=== PATIENT | female | born 1985 | race African-American/Black ===

== ENCOUNTER → 2016-08-28 | Outpatient (CLI) | payer MEDICAID ==
[2016-08-28 17:19] LABS: ABSOLUTE EOSINOPHILS # (AUTO) 0.3 10^3/uL (0.0-0.6); ABSOLUTE LYMPHOCYTES (AUTO) 2.4 10^3/uL (0.5-4.7); ABSOLUTE MONOCYTES (AUTO) 0.6 10^3/uL (0.1-1.4); ABSOLUTE NEUT (AUTO) 6.9 10^3/uL (1.7-8.2); BASOPHILS % (AUTO) 0.4 % (0-2); EOSINOPHILS % (AUTO) 2.9 % (0-6); HEMATOCRIT 36.4 % (36.0-47.0); HEMOGLOBIN 12.3 g/dL (12.0-15.5); HGB HCT DIFFERENCE 0.5; LYMPHOCYTES % (AUTO) 23.6 % (13-45); MEAN CORPUSCULAR HEMOGLOBIN 29.7 pg (27.0-33.4); MEAN CORPUSCULAR HGB CONC 33.8 g/dL (32.0-36.0); MEAN CORPUSCULAR VOLUME 88 fl (80-97); RED BLOOD COUNT 4.14 10^6/uL (3.72-5.28); RED CELL DISTRIBUTION WIDTH 14.3 % (11.5-14.0); SEGMENTED NEUTROPHILS % (AUTO) 67.1 % (42-78); WHITE BLOOD COUNT 10.3 10^3/uL (4.0-10.5)
[2016-08-28 17:39] LABS: ALANINE AMINOTRANSFERASE 41 U/L (9-52); ALBUMIN 3.8 g/dL (3.5-5.0); ALKALINE PHOSPHATASE 52 U/L (38-126); ANION GAP 10 (5-19); ASPARTATE AMINO TRANSFERASE 23 U/L (14-36); BILIRUBIN,TOTAL 0.2 mg/dL (0.2-1.3); BLOOD UREA NITROGEN 18 mg/dL (7-20); CALCIUM 9.2 mg/dL (8.4-10.2); CARBON DIOXIDE 28 mmol/L (22-30); CHLORIDE 103 mmol/L (98-107); CREATININE RESULT 0.69 mg/dL (0.52-1.25); GLUCOSE 90 mg/dL (75-110); LIPASE 47.5 U/L (23-300); POTASSIUM 4.1 mmol/L (3.6-5.0); SODIUM 141.3 mmol/L (137-145); TOTAL PROTEIN 7.5 g/dL (6.3-8.2)
== END ==
LOC: OD 16:56
PROVIDERS: ATTEND Nurse Practitioner Acute Care
DX: R10.11 Right upper quadrant pain (principal)
CPT/HCPCS: 36415; 80053; 83690; 85025

== ENCOUNTER 2017-01-05 23:35 | Emergency (ER) | payer MEDICAID ==
--- NOTE | 2017-01-06 01:29 | RADIOLOGY REPORT (SQ) ---
EXAM DESCRIPTION: ANKLE LEFT COMPLETE COMPLETED DATE/TIME: 01/06/2017 1:07 am REASON FOR STUDY: left ankle injury s/p fall COMPARISON: None. NUMBER OF VIEWS: Three views. TECHNIQUE: AP, lateral, and oblique radiographic images acquired of the left ankle. LIMITATIONS: None. FINDINGS: MINERALIZATION: Normal. BONES: No acute fracture or dislocation. No worrisome bone lesions. Small plantar faucial enthesoph yte. Diminished calcaneal inclination angle. JOINTS: No effusions. SOFT TISSUES: Moderate lateral malleolar soft tissue swelling. OTHER: No other significant finding. IMPRESSION: Moderate lateral malleolar soft tissue swelling of the left ankle. TECHNICAL DOCUMENTATION: JOB ID: [id number] [employer]- All Rights Reserved
[2017-01-06] MEDS ORDERED: IBUPROFEN 600 MG TABLET PO ONE (03:53)
--- NOTE | 2017-01-06 03:58 | ER Document Report ---
ED General - General Chief Complaint: Fall Injury Stated Complaint: ANKLE PAIN Time Seen by Provider: 01/06/17 03:32 Notes: Patient is a 31 year old female without past medical history presents after missing a step and rolling her left ankle. States that since that time she has had a severe, constant, throbbing pain to the left ankle. No history of similar injury in the past. States she has been able to bear weight but it worsens the pain. Has not tried anything for improvement of the pain. She has not seen a primary care doctor regarding today's concerns. TRAVEL OUTSIDE OF THE [place] IN LAST 30 DAYS: No - Related Data Allergies/Adverse Reactions: No Known Allergies Allergy (Verified 01/06/17 00:55) Past Medical History - General Information source: Patient - Social History Smoking Status: Never Smoker Frequency of alcohol use: None Drug Abuse: None Lives with: Spouse/Significant other Family History: Reviewed & Not Pertinent Renal/ Medical History: Denies: Hx Peritoneal Dialysis Past Surgical History: Reports: Hx Section - x4 - Immunizations Hx Diphtheria, Pertussis, Tetanus Vaccination: Yes Review of Systems - Review of Systems Notes: Constitutional: Negative for fever. Eyes: Negative for visual changes. ENT: Negative for facial injury Cardiovascular: Negative for chest injury. Respiratory: Negative for shortness of breath. Gastrointestinal: Negative for abdominal injury. Genitourinary: Negative for genital injury Musculoskeletal: Positive for left ankle pain Skin: Negative for laceration/abrasions. Neurological: Negative for head injury. Physical Exam - Vital signs Vitals: Temp Pulse Resp BP Pulse Ox 98.7 F 68 20 114/69 100 01/06/17 00:54 01/06/17 00:54 01/06/17 00:54 01/06/17 00:54 01/06/17 00:54 Interpretation: Normal Notes: PHYSICAL EXAMINATION: GENERAL: Well-appearing, well-nourished and in no acute distress. HEAD: Atraumatic, normocephalic. EYES: sclera anicteric, conjunctiva are normal. ENT: Moist mucous membranes. NECK: Normal range of motion LUNGS: Normal work of breathing HEART: 2+ radial pulses bilaterally EXTREMITIES: Significant swelling of the lateral malleolus on the left ankle. Full dorsi and plantar flexion although significant pain with range of motion. No pain over the navicular or the base of the fifth toe. NEUROLOGICAL: No focal neurological deficits. Moves all extremities spontaneously and on command. PSYCH: Normal mood, normal affect. SKIN: Warm, Dry, normal turgor, no rashes or lesions noted. Course - Re-evaluation Re-evalutation: 01/06/17 03:53 No evidence of a septic joint, gout flare, dislocation, or fracture on exam and imaging. History and exam are most consistent with an acute ligamentous injury. Vitals wnl. At this time, I do not see an indication for labs or further imaging. Will discharge with conservative measures, return precautions, and follow-up recommendations. - Vital Signs Vital signs: Temp Pulse Resp BP Pulse Ox 98.7 F 68 20 114/69 100 01/06/17 00:54 01/06/17 00:54 01/06/17 00:54 01/06/17 00:54 01/06/17 00:54 - Diagnostic Test Radiology reviewed: Image reviewed, Reports reviewed Radiology results interpreted by me: 01/06/17 03:55 Left ankle x-ray: No acute fracture dislocation Discharge - Discharge Clinical Impression: Left ankle sprain Qualifiers: Encounter type: initial encounter Involved ligament of ankle: unspecified ligament Qualified Code(s): S93.402A - Sprain of unspecified ligament of left ankle, initial encounter Condition: Good Disposition: HOME, SELF-CARE Additional Instructions: Your x-ray does not show any acute fracture today. You likely have a ligamentous strain. You should continue to take anti-inflammatories such as ibuprofen 600 mg every 6 hours. Continue to apply ice to the area is much your able. Please follow-up with your primary care physician if you do not have improving your symptoms in the next 1-2 weeks. Please return immediately if you develop weakness, numbness, spreading redness from the area, or any other symptoms that are concerning to you.
[2017-01-06 04:57] VITALS: BP 124/74
== END 2017-01-06 04:52 | disposition home or self-care (01) ==
LOC: ER 23:35
DX: S93.402A Sprain of unspecified ligament of left ankle, initial encounter (principal); X50.0XXA Overexertion from strenuous movement or load, initial encounter
CPT/HCPCS: 99283; 73610; J3490

== ENCOUNTER 2018-09-16 16:54 | Outpatient (CLI) | payer MEDICAID ==
--- NOTE | 2018-09-16 18:09 | Non Stress Test Report ---
Non Stress Test Datetime Report Generated by CPN: 09/16/2018 18:09 INDICATION Indication for Study: Ordered by Provider VITAL SIGNS Temperature - NST: 98.0 RESP - NST: 16 NBPSYS NST: 118 NBPDIA NST: 60 MONITORING Monitor Explained: Monitor Explained; Test Explained; Patient Verbalized Understanding Time on Monitor: 09/16/2018 17:08 Time off Monitor: 09/16/2018 17:46 NST Duration: 38 NST INTERVENTIONS NST Interventions: PO Hydration Physician Notified NST: K. Bella CNM BABY A: [id number] BABY A Movement : Present Contraction Frequency : none FHR Baseline : 135 Accelerations : 15X15 Decelerations : None Variability : Moderate 6-25bpm NST Review: Does Not Meet Criteria for Reactive NST NST Review and Verified By : Jojo Zeb RNC NST Results: Reactive NST REPORT Report Trigger: Send Report
== END 2018-09-16 18:07 | disposition home or self-care (01) ==
LOC: LC 16:54
PROVIDERS: ATTEND Obstetrics & Gynecology Gynecology
PROC: 4A1HXCZ Monitoring of Products of Conception, Cardiac Rate, External Approach (ICD-10-PCS; principal; 2018-09-16)
DX: Z34.93 Encounter for supervision of normal pregnancy, unspecified, third trimester (principal)
CPT/HCPCS: 59025

== ENCOUNTER 2018-10-06 05:31 | Inpatient (IN) | payer MEDICAID ==
[2018-10-04 12:53] LABS: ABSOLUTE EOSINOPHILS # (AUTO) 0.2 10^3/uL (0.0-0.6); ABSOLUTE LYMPHOCYTES (AUTO) 1.5 10^3/uL (0.5-4.7); ABSOLUTE MONOCYTES (AUTO) 0.6 10^3/uL (0.1-1.4); ABSOLUTE NEUT (AUTO) 6.1 10^3/uL (1.7-8.2); BASOPHILS % (AUTO) 0.2 % (0-2); EOSINOPHILS % (AUTO) 2.3 % (0-6); HEMATOCRIT 35.2 % (36.0-47.0); HEMOGLOBIN 12.2 g/dL (12.0-15.5); LYMPHOCYTES % (AUTO) 17.8 % (13-45); MEAN CORPUSCULAR HEMOGLOBIN 30.3 pg (27.0-33.4); MEAN CORPUSCULAR HGB CONC 34.6 g/dL (32.0-36.0); MEAN CORPUSCULAR VOLUME 88 fl (80-97); MONOCYTES % (AUTO) 7.2 % (3-13); PLATELET COUNT 395 10^3/uL (150-450); RED BLOOD COUNT 4.01 10^6/uL (3.72-5.28); RED CELL DISTRIBUTION WIDTH 14.5 % (11.5-14.0); SEGMENTED NEUTROPHILS % (AUTO) 72.5 % (42-78); TOTAL CELLS COUNTED % (AUTO) 100 %; WHITE BLOOD COUNT 8.4 10^3/uL (4.0-10.5)
[2018-10-04 13:04] LABS: APPEARANCE,URINE CLEAR; BILIRUBIN,URINE NEGATIVE (NEGATIVE); COLOR,URINE STRAW; GLUCOSE, URINE 50 mg/dL (NEGATIVE); KETONES,URINE TRACE mg/dL (NEGATIVE); LEUKOCYTE ESTERASE,URINE NEGATIVE (NEGATIVE); NITRITE,URINE NEGATIVE (NEGATIVE); PROTEIN,URINE NEGATIVE (NEGATIVE); URINE SPECIFIC GRAVITY 1.009; UROBILINOGEN,URINE NEGATIVE mg/dL (<2.0)
[2018-10-04 13:13] LABS: URINE AMPHETAMINES SCREEN NEGATIVE; URINE BARBITURATES SCREEN NEGATIVE; URINE BENZODIAZEPINES SCREEN NEGATIVE; URINE COCAINE SCREEN NEGATIVE; URINE MARIJUANA (THC) SCREEN NEGATIVE; URINE METHADONE SCREEN NEGATIVE; URINE PHENCYCLIDINE SCREEN NEGATIVE
[2018-10-06] MEDS ORDERED: RINGERS SOLUTION,LACTATED 1,000 ML IV PRN ×2 (06:13→10:47)
[2018-10-06] MEDS ORDERED: CEFAZOLIN 2 GM/D5W RTU 2 GM/50 ML RTUPB IV PRN (06:14)
[2018-10-06] MEDS ORDERED: RINGERS SOLUTION,LACTATED 1,000 ML IV ONE (06:15)
[2018-10-06] MEDS ORDERED: ONDANSETRON HCL INJ/PF 4 MG/2 ML SDV ONE (08:37)
[2018-10-06] MEDS ORDERED: KETOROLAC TROMETHAMINE 60 MG/2 ML SDV ONE (08:37)
[2018-10-06] MEDS ORDERED: PROMETHAZINE HCL INJ 25 MG/1 ML VIAL ONE (08:37)
[2018-10-06] MEDS ORDERED: MIDAZOLAM 2 MG/2 ML INJ ONE (08:37)
[2018-10-06] MEDS ORDERED: BUPIVACAINE HCL/DEX-WATER/PF 15 MG/2 ML AMPULE ONE (08:37)
[2018-10-06] MEDS ORDERED: EPHEDRINE SULFATE INJ 50 MG/1 ML AMPULE ONE (08:37)
[2018-10-06] MEDS ORDERED: PHENYLEPHRINE HCL INJ/PF 10 MG/1 ML SDV ONE (08:37)
[2018-10-06] MEDS ORDERED: FENTANYL CITRATE INJ/PF 100 MCG/2 ML AMPUL ONE ×2 (08:38→11:30)
[2018-10-06] MEDS ORDERED: OXYTOCIN 10 UNIT/ML VIAL ONE (08:38)
[2018-10-06] MEDS ORDERED: VASOPRESSIN INJ 20 UNIT/1 ML VIAL ONE (08:44)
[2018-10-06] MEDS ORDERED: ALBUMIN HUMAN 5% INJ 25 GM/500 ML BOTTLE IV PRN (08:49)
[2018-10-06] MEDS ORDERED: CITRIC ACID/SODIUM CITRATE ORAL SOLN 15 ML UDCUP ONE (09:14)
[2018-10-06] MEDS ORDERED: ALBUMIN HUMAN 500 ML IV PRN (09:21)
[2018-10-06] MEDS ORDERED: MORPHINE SULFATE 10 MG/ML INJ IV PRN ×2 (09:42→10:47)
[2018-10-06] MEDS ORDERED: PROMETHAZINE HCL INJ 25 MG/1 ML VIAL IV PRN ×3 (09:42→10:47)
[2018-10-06] MEDS ORDERED: MEPERIDINE HCL/PF INJ 25 MG/1 ML DISP.SYRIN IV PRN (09:42)
[2018-10-06] MEDS ORDERED: FENTANYL CITRATE INJ/PF 100 MCG/2 ML AMPUL IV PRN ×3 (09:42)
[2018-10-06] MEDS ORDERED: ACETAMINOPHEN 1,000 MG/100 ML RTUPB IV ONE (10:22)
[2018-10-06] MEDS ORDERED: MEASLES,MUMPS&RUBELLA VACC/PF 0.5 ML VIAL SUBCUT PRN (10:47)
[2018-10-06] MEDS ORDERED: OXYTOCIN/NORMAL SALINE 20 UNIT/1,000 ML RTUINJ IV PRN (10:47)
[2018-10-06] MEDS ORDERED: ACETAMINOPHEN 1,000 MG/100 ML RTUPB IV PRN (10:47)
[2018-10-06] MEDS ORDERED: ACETAMINOPHEN 325 MG TABLET PO PRN (10:47)
[2018-10-06] MEDS ORDERED: OXYCODONE-ACETAMINOPHEN 5-325 MG TABLET PO PRN (10:47)
[2018-10-06] MEDS ORDERED: DIPH/PERTUSS(ACELL)/TETANUS VAC/PF 0.5 ML SYR (>=10YO) IM PRN (10:47)
[2018-10-06] MEDS ORDERED: DIPHENHYDRAMINE HCL 50 MG/ML VIAL ONE (11:37)
--- NOTE | 2018-10-06 11:39 | OPERATIVE REPORT E ---
Operative Report NAME: STAS ABREU : 1985 AGE: 32Y DATE OF SURGERY: 10/06/2018 ROOM: 228 PREOPERATIVE DIAGNOSIS: IUP at 39 weeks, previous x4, undesired fertility. POSTOPERATIVE DIAGNOSIS: IUP at 39 weeks, previous x4, undesired fertility. OPERATION: Low-transverse hysterotomy section with Vinings tubal ligation. SURGEON: VIC GARCES M.D. RESULTS ENGINEER: Kirsten Wong [facility] ANESTHESIA: Chavez Robbins M.D. FINDINGS: Male , cephalic presentation, with Apgars of 9 and 9, weight 7 pounds 11 ounces. Dense adhesions of the fascial tissue to the rectus muscle. COMPLICATIONS: None. ESTIMATED BLOOD LOSS: 650 mL. SPECIMENS REMOVED: Bilateral fallopian tubes. PROCEDURE IN DETAIL: The patient was taken to the operating room, prepared and draped in normal sterile fashion in a supine position with a leftward tilt. A transverse skin incision was made with a scalpel and carried through to the underlying layer of fascia with the same scalpel. The fascia was excised in the midline and extended laterally with the scalpel and Mayos as needed. The rectus muscle was then dissected from the fascia sharply with Mayos both superiorly and inferiorly. The rectus muscle was divided sharply with Mayos and the peritoneal cavity was entered sharply. The bladder blade was inserted. The hysterotomy was nicked with a scalpel and extended laterally with surgeon finger fracture. The infant was then delivered atraumatically, the nose and mouth were suctioned with a suction bulb, the cord was clamped and cut, and handed off to awaiting junior buyer. Cord blood was collected. The placenta was removed manually. The uterus was exteriorized and cleared of clots and debris. The hysterotomy was closed with 0 Monocryl in a running, locked fashion. A second layer of the same suture was used to imbricate to ensure hemostasis. Attention was turned to the fallopian tubes where each fallopian tube was grasped with a [place] and the mesosalpinx was divided using Bovie cautery. A large 3.5 cm segment of the fallopian tube was then tied off with 2 pieces of 2-0 chromic and the intermediate section was then removed using Metzenbaums and made hemostatic with the Bovie. The uterus was then returned to the abdomen. The pedicles were reinspected and found to be hemostatic and intact. The rectus muscle was reapproximated with a mattress stitch of 2-0 chromic, and 2 other interrupted sutures were placed in order to hold bowel away. The fascia was then closed with 0 Vicryl, the subcutaneous layer was closed with plain catgut, and the skin was closed with 4-0 Vicryl. The patient tolerated the procedure well. Sponge, lap, and needle counts were correct x2, and the patient was taken to recovery in stable condition. DICTATING PHYSICIAN: VIC GARCES M.D. [id number] PHY#: [id number] ID: [id number] JOB#: [id number] ACCT: [id number] cc:VIC GARCES M.D. >
[2018-10-06] MEDS: DIPHENHYDRAMINE HCL 50 MG/ML VIAL IV PRN ×2 (11:40→12:05)
[2018-10-06] MEDS: KETOROLAC TROMETHAMINE INJ/PF 30 MG/1 ML SDV IV SCH ×2 (14:59→21:46)
[2018-10-06] MEDS: DOCUSATE SODIUM 100 MG CAPSULE PO SCH (18:00)
[2018-10-06] MEDS: SIMETHICONE 80 MG TAB.CHEW PO PRN (18:00)
[2018-10-06] MEDS: OXYCODONE-ACETAMINOPHEN 5-325 MG TABLET PO PRN (18:43)
[2018-10-07] MEDS: OXYCODONE-ACETAMINOPHEN 5-325 MG TABLET PO PRN ×3 (01:52→21:57)
[2018-10-07] MEDS: KETOROLAC TROMETHAMINE INJ/PF 30 MG/1 ML SDV IV SCH (05:05)
[2018-10-07 07:39] LABS: HEMATOCRIT 24.7 % (36.0-47.0); MEAN CORPUSCULAR HEMOGLOBIN 30.1 pg (27.0-33.4); MEAN CORPUSCULAR HGB CONC 34.1 g/dL (32.0-36.0); MEAN CORPUSCULAR VOLUME 88 fl (80-97); PLATELET COUNT 323 10^3/uL (150-450); RED CELL DISTRIBUTION WIDTH 14.7 % (11.5-14.0); WHITE BLOOD COUNT 12.9 10^3/uL (4.0-10.5)
[2018-10-07 07:44] LABS: HEMOGLOBIN 8.4 g/dL (12.0-15.5)
[2018-10-07] MEDS: DOCUSATE SODIUM 100 MG CAPSULE PO SCH ×2 (09:09→17:23)
[2018-10-07] MEDS: PRENATAL VITAMIN W DHA CAPSULE PO SCH (09:09)
[2018-10-07] MEDS: SIMETHICONE 80 MG TAB.CHEW PO PRN (09:11)
--- NOTE | 2018-10-07 09:22 | PDOC PROGRESS REPORT ---
Subjective-OB Progress Note for:: 10/07/18 Subjective: Pt resting, no complaints. Reports ambulating to restroom without difficulty, light bleeding, reg diet. Denies flatus. Physical Exam (OB) Vital Signs: Temp Pulse Resp BP Pulse Ox 98.7 F 118 H 22 H 131/75 H 95 10/07/18 08:22 10/07/18 08:22 10/07/18 08:22 10/07/18 08:22 10/07/18 08:22 Intake & Output 10/06/18 10/07/18 10/08/18 06:59 06:59 06:59 Intake Total 650 Output Total 1070 Balance -420 Weight 132.449 kg - PIH/Pre-Eclampsia Clonus: Negative Headache: Absent Epigastric Pain: No Visual Changes: No - Dressing Removed: No Incision: Well Approximated - Lochia Lochia Amount: Scant < 10 ml Lochia Color: Rubra/Red - Abdomen Description: Soft, Round Fundal Description: Firm, Midline Fundal Height: u/u - u/2 Objective-Diagnostic Laboratory: 10/07/18 06:35 10/07/18 06:35 WBC 12.9 H RBC 2.80 L Hgb 8.4 L D Hct 24.7 L MCV 88 MCH 30.1 MCHC 34.1 RDW 14.7 H Plt Count 323 Assessment and Plan(PN) - Assessment and Plan (1) Status post repeat low transverse section Is this a current diagnosis for this admission?: Yes (2) Morbid obesity Is this a current diagnosis for this admission?: Yes - Time Spent with Patient Time with patient: Less than 15 minutes Medications reviewed and adjusted accordingly: Yes - Disposition Anticipated Discharge: Home Within: within 24 hours
[2018-10-07] MEDS ORDERED: BENZONATATE 100 MG CAPSULE PO PRN (09:23)
[2018-10-07] MEDS: IBUPROFEN 800 MG TABLET PO SCH ×3 (12:04→23:09)
[2018-10-08] MEDS: OXYCODONE-ACETAMINOPHEN 5-325 MG TABLET PO PRN ×2 (02:14→08:12)
[2018-10-08] MEDS: IBUPROFEN 800 MG TABLET PO SCH (06:15)
[2018-10-08] MEDS: PRENATAL VITAMIN W DHA CAPSULE PO SCH (09:11)
[2018-10-08] MEDS: DOCUSATE SODIUM 100 MG CAPSULE PO SCH (09:11)
--- NOTE | 2018-10-08 09:16 | PDOC DISCHARGE SUMMARY ---
Final Diagnosis Discharge Date: 10/08/18 - POD #2, desires to go home today, doing well, no complaints. A+, Rubella Immune, . s/p Rpt w/ BTL. Hx of GDM this - Final Diagnosis (1) GDM, class A1 Is this a current diagnosis for this admission?: Yes (2) Normal course Is this a current diagnosis for this admission?: Yes (3) Morbid obesity Is this a current diagnosis for this admission?: Yes (4) Status post repeat low transverse section Is this a current diagnosis for this admission?: Yes (5) Anemia, Is this a current diagnosis for this admission?: Yes Discharge Data - Discharge Medication Prescriptions: Ferrous Sulfate [Feosol 325 mg Tablet] 325 mg PO DAILY #30 tablet Ibuprofen [Motrin 800 mg Tablet] 800 mg PO Q6 #60 tablet Oxycodone HCl/Acetaminophen [Percocet 5-325 mg Tablet] 1 tab PO Q4HP PRN #30 tablet PRN Reason: Home Medications: Pnv W-O Ca No5/Fe Fumarate/FA [-U Multiple Vitamin Capsule] 1 cap PO DAILY 10/20/12 Ferrous Sulfate [Feosol 325 mg Tablet] 325 mg PO DAILY #30 tablet 10/08/18 Ibuprofen [Motrin 800 mg Tablet] 800 mg PO Q6 #60 tablet 10/08/18 Oxycodone HCl/Acetaminophen [Percocet 5-325 mg Tablet] 1 tab PO Q4HP PRN #30 tablet 10/08/18 Reason(s) for Admission: Ceasarean Section-Repeat, Tubal Ligation Procedures: NST, Ultrasound Intrapartum Procedure(s): : Low Cervical, Transverse - Diagnosis Test Laboratory: Temp Pulse Resp BP Pulse Ox 97.9 F 114 H 22 H 125/66 95 10/08/18 07:55 10/08/18 07:55 10/08/18 07:55 10/08/18 07:55 10/08/18 07:55 10/04/18 10/04/18 10/07/18 11:35 11:39 06:35 RBC 4.01 2.80 L Hgb 12.2 8.4 L D Hct 35.2 L 24.7 L Urine Opiates Screen NEGATIVE - Discharge information/Instructions Discharge Activity: Activity As Tolerated, No Driving, No Lifting Over 10 Pounds, Pelvic Rest Discharge Diet: As Tolerated, Regular Disposition: HOME, SELF-CARE Follow up with: [facility] in: 1, Weeks
[2018-10-08] MEDS ORDERED: FERROUS SULFATE 325 MG TABLET PO SCH (10:00)
[2018-10-08 13:48] VITALS: BP 139/68
== END 2018-10-08 15:06 | disposition home or self-care (01) | DRG 785 ==
LOC: 2S 05:31
PROVIDERS: ADMIT Obstetrics & Gynecology Gynecology; ATTEND Obstetrics & Gynecology Gynecology
PROC: 0UB70ZZ Excision of Bilateral Fallopian Tubes, Open Approach (ICD-10-PCS; 2018-10-06)
PROC: 10D00Z1 Extraction of Products of Conception, Low, Open Approach (ICD-10-PCS; principal; 2018-10-06 08:30)
PROC: 3E0234Z Introduction of Serum, Toxoid and Vaccine into Muscle, Percutaneous Approach (ICD-10-PCS; 2018-10-08)
PROC: 3E02340 Introduction of Influenza Vaccine into Muscle, Percutaneous Approach (ICD-10-PCS; 2018-10-08)
DX: O34.211 Maternal care for low transverse scar from previous cesarean delivery (principal); O99.214 Obesity complicating childbirth; O24.429 Gestational diabetes mellitus in childbirth, unspecified control; O99.334 Smoking (tobacco) complicating childbirth; F17.200 Nicotine dependence, unspecified, uncomplicated; E66.01 Morbid (severe) obesity due to excess calories; Z3A.39 39 weeks gestation of pregnancy; O99.02 Anemia complicating childbirth; D64.9 Anemia, unspecified; Z37.0 Single live birth; Z23 Encounter for immunization
CPT/HCPCS: 1961; 36415; 59025; 80307; 81001; 82962; 85025; 85027; 86850; 86900; 86901; 88302; 90471; 90686; 90715; 94799; G0008; J0131; J0690; J1200; J1885; J2250; J2270; J2370; J2405; J2550; J2590; J3010; J3490; J7120

== ENCOUNTER 2018-10-11 00:06 | Observation (INO) | payer MEDICAID ==
--- NOTE | 2018-10-11 01:56 | ER Document Report ---
ED Medical Screen (RME) - General Chief Complaint: Incision Problem Stated Complaint: POST OPT BLEEDING Time Seen by Provider: 10/11/18 01:52 Notes: 32-year-old female, had a on Thursday, went home on Thursday, patient is complaining of swelling in both lower extremities, shortness of breath, and headache. She also has some bleeding from the right lateral side of her C- section wound which is mild. Denies having preeclampsia during surgery, denies history of blood clot, on pain medication from discharge but no other daily medications. TRAVEL OUTSIDE OF THE [place] IN LAST 30 DAYS: No - Related Data Allergies/Adverse Reactions: No Known Allergies Allergy (Verified 10/04/18 12:13) Past Medical History Endocrine Medical History: Denies: Hx Hyperthyroidism, Hx Hypothyroidism Renal/ Medical History: Denies: Hx Peritoneal Dialysis Past Surgical History: Reports: Hx Section - x4 - Immunizations Hx Diphtheria, Pertussis, Tetanus Vaccination: Yes History of Influenza Vaccine for 04/2017 - 09/2017 Season: No Physical Exam - Vital signs Vitals: Temp Pulse Resp BP Pulse Ox 98.7 F 110 H 28 H 144/96 H 98 10/11/18 00:28 10/11/18 00:28 10/11/18 00:10/11/18 00:10/11/18 00:28 - Cardiovascular Rhythm: Regular, Tachycardia Heart sounds: Normal auscultation, S1 appreciated, S2 appreciated - Extremities General lower extremity: Other - Bilateral lower extremity swelling, seems slightly worse on the right - Skin Skin irregularity: other - There is dried blood on the bandage over the right lateral aspect of the wound, no current bleeding noted Course - Re-evaluation Re-evalutation: Patient with mildly elevated blood pressure, bilateral lower extremity swelling, she is tachycardic, complaining of shortness of breath, postop. Upgraded to triage level 2, called for a room. - Vital Signs Vital signs: Temp Pulse Resp BP Pulse Ox 98.7 F 110 H 28 H 144/96 H 98 10/11/18 00:28 10/11/18 00:28 10/11/18 00:10/11/18 00:10/11/18 00:28
[2018-10-11 02:24] LABS: HEMATOCRIT 24.2 % (36.0-47.0); HEMOGLOBIN 8.3 g/dL (12.0-15.5); MEAN CORPUSCULAR HEMOGLOBIN 30.5 pg (27.0-33.4); MEAN CORPUSCULAR HGB CONC 34.1 g/dL (32.0-36.0); MEAN CORPUSCULAR VOLUME 90 fl (80-97); PLATELET COUNT 455 10^3/uL (150-450); RED BLOOD COUNT 2.71 10^6/uL (3.72-5.28); RED CELL DISTRIBUTION WIDTH 14.8 % (11.5-14.0); WHITE BLOOD COUNT 9.8 10^3/uL (4.0-10.5)
[2018-10-11 02:41] LABS: ALANINE AMINOTRANSFERASE 70 U/L (9-52); ALBUMIN 3.6 g/dL (3.5-5.0); ALKALINE PHOSPHATASE 76 U/L (38-126); ANION GAP 7 (5-19); ASPARTATE AMINO TRANSFERASE 162 U/L (14-36); BILIRUBIN,DIRECT 0.2 mg/dL (0.0-0.4); BILIRUBIN,TOTAL 0.7 mg/dL (0.2-1.3); BLOOD UREA NITROGEN 17 mg/dL (7-20); CALCIUM 9.5 mg/dL (8.4-10.2); CARBON DIOXIDE 29 mmol/L (22-30); CHLORIDE 104 mmol/L (98-107); GLUCOSE 97 mg/dL (75-110); POTASSIUM 4.1 mmol/L (3.6-5.0); SODIUM 139.5 mmol/L (137-145); TOTAL PROTEIN 6.8 g/dL (6.3-8.2); URIC ACID 5.6 mg/dL (2.5-6.2)
[2018-10-11 02:42] LABS: ABSOLUTE LYMPHOCYTES# (MANUAL) 1.4 10^3/uL (0.5-4.7); BAND NEUTROPHILS % (MANUAL) 3 % (3-5); BASOPHILS % (MANUAL) 0 % (0-2); EOSINOPHILS % (MANUAL) 5 % (0-6); LYMPHOCYTES % (MANUAL) 14 % (13-45); METAMYELOCYTES % (MANUAL) 1 % (0); MONOCYTES % (MANUAL) 10 % (3-13); NUCLEATED RED BLOOD CELLS 2 /100 WBC (0); SEGMENTED NEUTROPHILS % (MAN) 67 % (42-78); TOTAL CELLS COUNTED 100
[2018-10-11 02:43] LABS: PLATELET COMMENT INCREASED; TOXIC VACUOLATION PRESENT
[2018-10-11 02:45] LABS: ANISOCYTOSIS SLIGHT; POIKILOCYTOSIS SLIGHT; POLYCHROMASIA 1+
--- NOTE | 2018-10-11 03:05 | RADIOLOGY REPORT (SQ) ---
EXAM DESCRIPTION: XR CHEST 1 VIEW COMPLETED DATE/TME: 10/11/2018 01:53 CLINICAL HISTORY: 32 years, Female, shortness of breath COMPARISON: 06/28/2014 NUMBER OF VIEWS: One TECHNIQUE: AP view of the chest LIMITATIONS: None. FINDINGS: The lungs are clear. The heart is normal in size. There is no pneumothorax or pleural effusion. There is no acute fracture. IMPRESSION: No acute cardiopulmonary abnormality copyright 2010 [employer]- All Rights Reserved
[2018-10-11 03:08] LABS: APPEARANCE,URINE SLIGHTLY-CLOUDY; BILIRUBIN,URINE NEGATIVE (NEGATIVE); COLOR,URINE YELLOW; GLUCOSE, URINE NEGATIVE (NEGATIVE); KETONES,URINE NEGATIVE (NEGATIVE); LEUKOCYTE ESTERASE,URINE NEGATIVE (NEGATIVE); NITRITE,URINE NEGATIVE (NEGATIVE); PROTEIN,URINE 30 mg/dL (NEGATIVE); URINE SPECIFIC GRAVITY 1.015
[2018-10-11 03:32] LABS: NT PRO BNP 496 pg/mL (<125)
[2018-10-11 03:33] LABS: TROPONIN I < 0.012 ng/mL
[2018-10-11] MEDS ORDERED: FUROSEMIDE INJ/PF 20 MG/2 ML SDV IV ONE (03:52)
--- NOTE | 2018-10-11 03:59 | ER Document Report ---
ED General - General Chief Complaint: Incision Problem Stated Complaint: POST OPT BLEEDING Time Seen by Provider: 10/11/18 01:52 Primary Care Provider: ROGELIO HOWE MD [Primary Care Provider] - Follow up as needed Notes: Patient is a pleasant 32-year-old female who underwent a on October 06. Said she had no complications of . was performed she had previous C-sections with other children. They also did a tubal ligation. This was performed here. Patient said that everything went well. She said just prior to being discharged chart note some swelling in her legs and she was told just to keep an eye on her swelling. She said swelling is continue to progress since then. She still having shortness of breath. No associated chest pain. No fevers. No severe pain in her abdomen. She did notice that her surgical incision wound was starting to bleed and therefore she came to the ER. She said bleeding has since slowed down. She did have a mild headache but this is also improved. TRAVEL OUTSIDE OF THE [place] IN LAST 30 DAYS: No - Related Data Allergies/Adverse Reactions: No Known Allergies Allergy (Verified 10/04/18 12:13) Past Medical History - Social History Smoking Status: Never Smoker Frequency of alcohol use: None Drug Abuse: None Family History: Reviewed & Not Pertinent Patient has suicidal ideation: No Patient has homicidal ideation: No Endocrine Medical History: Denies: Hx Hyperthyroidism, Hx Hypothyroidism Renal/ Medical History: Denies: Hx Peritoneal Dialysis Past Surgical History: Reports: Hx Section - x4 - Immunizations Hx Diphtheria, Pertussis, Tetanus Vaccination: Yes Review of Systems - Review of Systems Notes: My Normal Review Basic REVIEW OF SYSTEMS: CONSTITUTIONAL : Denies fever, chills, or sweats. Denies recent illness. EENT: Denies eye, ear, throat, or mouth pain or symptoms. Denies nasal or sinus congestion. CARDIOVASCULAR: Denies chest pain. RESPIRATORY: Some dyspnea. GASTROINTESTINAL: Denies abdominal pain. Denies nausea, vomiting, or diarrhea. From surgical wound. GENITOURINARY: Denies difficulty urinating, painful urination, burning, frequency, or blood in urine. MUSCULOSKELETAL: Lower extremity edema SKIN: Denies rash or skin lesions. NEUROLOGICAL: Denies altered mental status or loss of consciousness. Denies headache. Denies weakness or paralysis or loss of use of either side. Denies problems with gait or speech. Denies sensory or motor loss. ALL OTHER SYSTEMS REVIEWED AND NEGATIVE. Physical Exam - Vital signs Vitals: Temp Pulse Resp BP Pulse Ox 98.7 F 110 H 28 H 144/96 H 98 10/11/18 00:28 10/11/18 00:28 10/11/18 00:28 10/11/18 00:28 10/11/18 00:28 - Notes Notes: General Appearance: Well nourished, alert, cooperative, no acute distress, no obvious discomfort. Mild tachypnea Vitals: reviewed, See vital signs table. Head: no swelling or tenderness to the head Eyes: PERRL, EOMI, Conjuctiva clear Mouth: No decreasd moisture Lungs: No wheezing, No rales, No rhonci, No accessory muscle use, good air exchange bilaterally. Heart: Tachycardic rate, Regular rythm, No murmur, no rub Abdomen: Normal BS, soft, No rigidity, No abdominal tenderness, No guarding, no rebound, no abdominal masses, no organomegaly. Surgical incision sites from C- section is clean and intact. No active bleeding at this time. There is some blood in the bandage from where his bleeding before. Extremities: good pulses in all extremities, no swelling or tenderness in the extremities, 3+ bilateral lower extremity edema Skin: warm, dry, appropriate color, no rash Neuro: speech clear, oriented x 3, normal affect, responds appropriately to questions. Cranial nerves II through XII are intact. Distal sensation intact. Patient moves all extremities without difficulty. Course - Re-evaluation Re-evalutation: 10/11/18 03:56 On reevaluation she does have some tachypnea, significant edema bilateral lower extremities. She herself says that she feels okay for the most part. Her wound looks well. The leaving a stop. I have changed the dressing on the wound and the wound is dry and intact without signs of infection. I did recheck her temperature temp is normal at 98.3 degrees. Her lung chu remain clear. I have ordered a small dose of Lasix at 20 mg IV. Patient's retention is resolved on its own without any intervention. Her laboratory findings are very nonspecific and that she does have some slight liver enzyme elevation as well as some protein in her urine however she does not have a thrombocytopenia and her blood pressure is improving on its own. LDH is elevated but her uric acid is normal. I considered cardiomyopathy however chest x-ray does not show any concerning findings and her BNP is only slightly elevated at 496. She is on any signs of infection at this time. I did call and discuss case with Dr. Townsend, rn managed care on-call, he agrees with plan to give her a small dose of Lasix. He said to watch her for an hour or 2 and see how she progresses then to call him back. 10/11/18 05:55 On reevaluation patient continues to have some tachypnea. She says she feels a bit better since Lasix however she obviously still having a little bit difficulty breathing and is tachycardic. I wanted to avoid CTA of the chest w ith possible being that does cause a slight increased risk of breast cancer and when her breast-feeding; however, I feel that the benefits outweigh the risks as like cannot rule out PE at this time and if she does have a PE this definitely is a concerning finding. Patient is understanding of this and is understanding the risks of CT scan and agrees to go forward with it. 10/11/18 07:08 10/11/18 07:15 CTA is negative for PE. I did speak with Dr. Townsend who did evaluate the patient. He said that he talked to patient and she did talk with her about whether not stay or go home. Went back and spoke with the patient and she says that she does want to stay. I did call back and speak with Dr. Townsend's nurse and she spoke with Dr. Townsend who said to place the patient on the second floor and there was all observed. Patient will be admitted for observation due to dyspnea, increasing edema, tachycardia. Dictation of this chart was performed using voice recognition software; therefor e, there may be some unintended grammatical errors. - Vital Signs Vital signs: Temp Pulse Resp BP Pulse Ox 99.1 F 110 H 20 134/86 H 98 10/11/18 07:01 10/11/18 00:28 10/11/18 06:01 10/11/18 06:01 10/11/18 06:01 - Laboratory Result Diagrams: 10/11/18 02:08 10/11/18 02:08 Laboratory results interpreted by me: 10/11/18 10/11/18 10/11/18 02:08 02:08 02:08 RBC 2.71 L Hgb 8.3 L Hct 24.2 L RDW 14.8 H Plt Count 455 H Metamyelocytes % 1 H AST 162 H ALT 70 H Lactate Dehydrogenase 418 H NT-Pro-B Natriuret Pep 496 H Urine Protein Urine Blood Urine Urobilinogen 10/11/18 02:33 RBC Hgb Hct RDW Plt Count Metamyelocytes % AST ALT Lactate Dehydrogenase NT-Pro-B Natriuret Pep Urine Protein 30 H Urine Blood LARGE H Urine Urobilinogen 4.0 H Discharge - Discharge Clinical Impression: Tachycardia Dyspnea Qualifiers: Dyspnea type: unspecified Qualified Code(s): R06.00 - Dyspnea, unspecified Edema Qualifiers: Edema type: unspecified Qualified Code(s): R60.9 - Edema, unspecified Condition: Stable Disposition: ADMITTED OBSERVATION Admitting Provider: [facility] Admitted: Post Referrals: ROGELIO HOWE MD [Primary Care Provider] - Follow up as needed
--- NOTE | 2018-10-11 06:44 | RADIOLOGY REPORT (SQ) ---
EXAM DESCRIPTION: CT CHEST ANGIOGRAPHY WITH IV CONTRAST COMPLETED DATE/TME: 10/11/2018 05:45 CLINICAL HISTORY: 32 years Female, post op dyspnea Comparison: CR, same day and 06/28/14. Technique: IV contrast. Coronal and sagittal reformat. 3d reconstruction. This exam was performed according to our departmental dose-optimization program, which includes automated exposure control, adjustment of the mA and/or kV according to patient size and/or use of iterative reconstruction technique.[facility]: Dose Right [facility]: CareDose [facility]: Dose Right [facility]: Teradose 4D [facility]: Smart [employer]works LIMITATIONS: Quality of pulmonary arteriogram: Suboptimal. Streak artifact. Findings: No pulmonary embolus. No right ventricular strain. Clear lungs. Disc desiccation. Inferior neck, axillae, mediastinum, lungs, airway, lymphatics, heart, vasculature, upper abdomen, and musculoskeleton appear otherwise unremarkable. Impression: No pulmonary embolus. No acute cardiopulmonary findings. Limitation.
--- NOTE | 2018-10-11 07:39 | EKG REPORT ---
SEVERITY:- BORDERLINE ECG - SINUS TACHYCARDIA BORDERLINE PROLONGED QT INTERVAL : Confirmed by: William Ellsworth MD 11-Oct-2018 07:38:39
--- NOTE | 2018-10-11 07:42 | PDOC H&P ---
History of Present Illness Admission Date/PCP: 10/11/18 07:23 ROGELIO HOWE MD Patient complains of: Shortness of breath History of Present Illness: STAS ABREU is a 32 year old female who is post op from a c section on the . She complains of increased swelling ang shortness of breath. She has responded well to lasix in the ER and is being admitted for observation. Past Medical History Gynecological Infection: No Past Medical History: Significant for 4 c sections and btl Cardiac Medical History: Reports: None Pulmonary Medical History: Reports: None EENT Medical History: Reports: None Endocrine Medical History: Denies: Hyperthyroidism, Hypothyroidism Past Surgical History Past Surgical History: Reports: Section - x4 Social History Information Source: Patient Lives with: Family Smoking Status: Never Smoker Frequency of Alcohol Use: None Hx Recreational Drug Use: No Family History Family History: Reviewed & Not Pertinent Parental Family History Reviewed: Yes Children Family History Reviewed: Yes Sibling(s) Family History Reviewed.: Yes Medication/Allergy Home Medications: Pnv W-O Ca No5/Fe Fumarate/FA [-U Multiple Vitamin Capsule] 1 cap PO DAILY 10/20/12 Ferrous Sulfate [Feosol 325 mg Tablet] 325 mg PO DAILY #30 tablet 10/08/18 Ibuprofen [Motrin 800 mg Tablet] 800 mg PO Q6 #60 tablet 10/08/18 Oxycodone HCl/Acetaminophen [Percocet 5-325 mg Tablet] 1 tab PO Q4HP PRN #30 tablet 10/08/18 Allergies/Adverse Reactions: No Known Allergies Allergy (Verified 10/04/18 12:13) Review of Systems Eyes: ABSENT: visual disturbances Cardiovascular: ABSENT: chest pain, dyspnea on exertion, edema, orthropnea, palpitations Respiratory: PRESENT: dyspnea Musculoskeletal: ABSENT: joint swelling Neurological: ABSENT: abnormal gait, abnormal speech, confusion, dizziness, focal weakness, syncope Physical Exam - Physical Exam Vital Signs: Temp Pulse Resp BP Pulse Ox 99.1 F 110 H 20 134/86 H 98 10/11/18 07:01 10/11/18 00:28 10/11/18 06:01 10/11/18 06:01 10/11/18 06:01 Intake & Output 10/10/18 10/11/18 10/12/18 06:59 06:59 06:59 Weight 135.9 kg General appearance: PRESENT: mild distress, obese Head exam: PRESENT: atraumatic Eye exam: PRESENT: conjunctiva pink, EOMI, PERRLA. ABSENT: scleral icterus Ear exam: PRESENT: normal external ear exam Respiratory exam: PRESENT: symmetrical, tachypnea Cardiovascular exam: PRESENT: tachycardia Pulses: PRESENT: normal dorsalis pedis pul, +2 pedal pulses bilateral Vascular exam: PRESENT: normal capillary refill GI/Abdominal exam: PRESENT: normal bowel sounds, soft, other - c section incision. ABSENT: distended, guarding, mass, organolmegaly, rebound, tenderness Extremities exam: PRESENT: full ROM. ABSENT: calf tenderness, clubbing, pedal edema Musculoskeletal exam: PRESENT: ambulatory Neurological exam: PRESENT: alert, awake, oriented to person, oriented to place, oriented to time, oriented to situation, CN II-XII grossly intact. ABSENT: motor sensory deficit Psychiatric exam: PRESENT: appropriate affect, normal mood. ABSENT: homicidal ideation, suicidal ideation Skin exam: PRESENT: dry, intact, warm. ABSENT: cyanosis, rash Result Laboratory Results: 10/11/18 02:08 10/11/18 02:08 10/11/18 10/11/18 10/11/18 02:08 02:08 02:33 WBC 9.8 RBC 2.71 L Hgb 8.3 L Hct 24.2 L MCV 90 MCH 30.5 MCHC 34.1 RDW 14.8 H Plt Count 455 H Seg Neutrophils % Not Reportable Lymphocytes % Not Reportable Monocytes % Not Reportable Eosinophils % Not Reportable Basophils % Not Reportable Absolute Neutrophils Not Reportable Absolute Lymphocytes Not Reportable Absolute Monocytes Not Reportable Absolute Eosinophils Not Reportable Absolute Basophils Not Reportable Sodium 139.5 Potassium 4.1 Chloride 104 Carbon Dioxide 29 Anion Gap 7 BUN 17 Creatinine 0.65 Est GFR ( Amer) > 60 Est GFR (Non-Af Amer) > 60 Glucose 97 Uric Acid 5.6 Calcium 9.5 Total Bilirubin 0.7 AST 162 H ALT 70 H Alkaline Phosphatase 76 Total Protein 6.8 Albumin 3.6 Urine Color YELLOW Urine Appearance SLIGHTLY-CLOUDY Urine pH 7.0 Ur Specific [place] 1.015 Urine Protein 30 H Urine Glucose (UA) NEGATIVE Urine Ketones NEGATIVE Urine Blood LARGE H Urine Nitrite NEGATIVE Ur Leukocyte Esterase NEGATIVE Urine WBC (Auto) 13 Urine RBC (Auto) >182 10/11/18 02:08 Troponin I < 0.012 NT-Pro-B Natriuret Pep 496 H Impressions: Chest X-Ray 10/11/18 01:53 IMPRESSION: No acute cardiopulmonary abnormality copyright 2011 [employer]- All Rights Reserved Assessment & Plan - Diagnosis (1) Dyspnea Qualifiers: Dyspnea type: unspecified Qualified Code(s): R06.00 - Dyspnea, unspecified Is this a current diagnosis for this admission?: Yes Plan: Continue lasix for the symtoms of fluid overload. Iron TX for anemia (2) Tachycardia Is this a current diagnosis for this admission?: Yes - Plan Summary Plan Summary: Continue the lasix for symptoms of fluid overload. Begin Iron for anemia.
[2018-10-11] MEDS: FUROSEMIDE 20 MG TABLET PO SCH ×2 (10:06→18:32)
[2018-10-11] MEDS: PRENATAL VITAMIN W DHA CAPSULE PO SCH (10:07)
[2018-10-11] MEDS: ASCORBIC ACID 500 MG TABLET PO SCH ×2 (10:07→18:32)
[2018-10-11] MEDS: IBUPROFEN 800 MG TABLET PO PRN (13:44)
[2018-10-11] MEDS: IRON POLYSACCHARIDES COMPLEX 150 MG CAPSULE PO SCH (13:44)
--- NOTE | 2018-10-11 17:26 | PDOC PROGRESS REPORT ---
Subjective Progress Note for:: 10/11/18 Subjective:: Patient states that she had some blood-tinged drainage from her incision in the ED. Patient has not seen any bleeding today. She states that she is voiding a lot now. Her swelling is improving. Patient denies chest pain. Patient states that her breathing is somewhat labored when going to the bathroom. Patient denies nausea/vomiting and fever/chills. Reason For Visit: FLUID OVERLOAD Physical Exam - Physical Exam Vital Signs: Temp Pulse Resp BP Pulse Ox 99.1 F 90 22 H 125/76 98 10/11/18 15:09 10/11/18 15:09 10/11/18 15:09 10/11/18 15:09 10/11/18 15:09 Intake & Output 10/10/18 10/11/18 10/12/18 06:59 06:59 06:59 Weight 135.9 kg General appearance: PRESENT: no acute distress Respiratory exam: PRESENT: clear to auscultation kaylee, unlabored Cardiovascular exam: PRESENT: RRR GI/Abdominal exam: PRESENT: normal bowel sounds, soft - Incision well-healed Musculoskeletal exam: ABSENT: ambulatory, deformity - No pitting edema, dislocation, full ROM, normal inspection, tenderness, other Result Laboratory Results: 10/11/18 02:08 10/11/18 02:08 10/11/18 10/11/18 10/11/18 02:08 02:08 02:33 WBC 9.8 RBC 2.71 L Hgb 8.3 L Hct 24.2 L MCV 90 MCH 30.5 MCHC 34.1 RDW 14.8 H Plt Count 455 H Seg Neutrophils % Not Reportable Lymphocytes % Not Reportable Monocytes % Not Reportable Eosinophils % Not Reportable Basophils % Not Reportable Absolute Neutrophils Not Reportable Absolute Lymphocytes Not Reportable Absolute Monocytes Not Reportable Absolute Eosinophils Not Reportable Absolute Basophils Not Reportable Sodium 139.5 Potassium 4.1 Chloride 104 Carbon Dioxide 29 Anion Gap 7 BUN 17 Creatinine 0.65 Est GFR ( Amer) > 60 Est GFR (Non-Af Amer) > 60 Glucose 97 Uric Acid 5.6 Calcium 9.5 Total Bilirubin 0.7 AST 162 H ALT 70 H Alkaline Phosphatase 76 Total Protein 6.8 Albumin 3.6 Urine Color YELLOW Urine Appearance SLIGHTLY-CLOUDY Urine pH 7.0 Ur Specific [place] 1.015 Urine Protein 30 H Urine Glucose (UA) NEGATIVE Urine Ketones NEGATIVE Urine Blood LARGE H Urine Nitrite NEGATIVE Ur Leukocyte Esterase NEGATIVE Urine WBC (Auto) 13 Urine RBC (Auto) >182 10/11/18 02:08 Troponin I < 0.012 NT-Pro-B Natriuret Pep 496 H Impressions: Chest X-Ray 10/11/18 01:53 IMPRESSION: No acute cardiopulmonary abnormality copyright 2010 [employer]- All Rights Reserved Assessment & Plan - Diagnosis (1) Dyspnea Qualifiers: Dyspnea type: dyspnea on exertion Qualified Code(s): R06.09 - Other forms of dyspnea Is this a current diagnosis for this admission?: Yes (2) Edema Qualifiers: Edema type: unspecified Qualified Code(s): R60.9 - Edema, unspecified Is this a current diagnosis for this admission?: Yes (4) GDM, class A1 Is this a current diagnosis for this admission?: Yes (5) Morbid obesity Is this a current diagnosis for this admission?: Yes (6) Status post repeat low transverse section Is this a current diagnosis for this admission?: Yes - Time Time Spent with patient: 15-24 minutes - Plan Summary Plan Summary: 1. Continue diuresing the patient 2. Clean incision and place a new dressing 3. Continue current care
[2018-10-12] MEDS: IBUPROFEN 800 MG TABLET PO PRN (01:11)
--- NOTE | 2018-10-12 09:47 | PDOC DISCHARGE SUMMARY ---
General - Admit/Disc Date/PCP Admission Date/Primary Care Provider: 10/11/18 07:23 ROGELIO HOWE MD Discharge Date: 10/12/18 - Discharge Diagnosis (1) Edema Is this a current diagnosis for this admission?: Yes (2) Morbid obesity Is this a current diagnosis for this admission?: Yes (3) Status post repeat low transverse section Is this a current diagnosis for this admission?: Yes - Additional Information Resuscitation Status: Full Code Discharge Diet: Regular Discharge Activity: Balance Activity w/Rest, No Lifting/Push/Pulling, Pelvic Rest, No tub bath Prescriptions: Cephalexin Monohydrate [Keflex 500 mg Capsule] 500 mg PO Q12 10 Days #20 capsule Home Medications: Pnv W-O Ca No5/Fe Fumarate/FA [-U Multiple Vitamin Capsule] 1 cap PO DAILY 10/20/12 Ferrous Sulfate [Feosol 325 mg Tablet] 325 mg PO DAILY #30 tablet 10/08/18 Ibuprofen [Motrin 800 mg Tablet] 800 mg PO Q6 #60 tablet 10/08/18 Oxycodone HCl/Acetaminophen [Percocet 5-325 mg Tablet] 1 tab PO Q4HP PRN #30 tablet 10/08/18 Docusate Sodium [Colace 100 mg Capsule] 100 mg PO DAILY 10/11/18 Cephalexin Monohydrate [Keflex 500 mg Capsule] 500 mg PO Q12 10 Days #20 capsule 10/12/18 History of Present Illness History of Present Illness: STAS ABREU is a 32 year old female admitted for edema and SOB Hospital Course Hospital Course: states she feels better and is ready to go home, agrees to follow up in one week for surgery check, BP, wt; states she has burning with urination, will start keflex and obtain urine culture. Physical Exam - Physical Exam Vital Signs: Temp Pulse Resp BP Pulse Ox 98.4 F 100 20 133/86 H 96 10/12/18 07:52 10/12/18 07:52 10/12/18 08:47 10/12/18 07:52 10/12/18 07:52 Intake & Output 10/11/18 10/12/18 10/13/18 06:59 06:59 06:59 Intake Total 3950 Output Total 400 500 Balance 3550 -500 Weight 135.9 kg 127.2 kg General appearance: PRESENT: no acute distress, cooperative, morbidly obese Respiratory exam: PRESENT: unlabored GI/Abdominal exam: PRESENT: other - op site slightly loose, RN agrees to change before discharge Psychiatric exam: PRESENT: appropriate affect Result Laboratory Results: 10/11/18 02:08 10/11/18 02:08 10/11/18 02:08 Troponin I < 0.012 NT-Pro-B Natriuret Pep 496 H Impressions: Chest X-Ray 10/11/18 01:53 IMPRESSION: No acute cardiopulmonary abnormality copyright 2010 [employer]- All Rights Reserved Plan Discharge Plan: start keflex, f/u in one week at [facility] Time Spent: Less than 30 Minutes
[2018-10-12] MEDS: PRENATAL VITAMIN W DHA CAPSULE PO SCH (10:13)
[2018-10-12] MEDS: IRON POLYSACCHARIDES COMPLEX 150 MG CAPSULE PO SCH (10:14)
[2018-10-12] MEDS: ASCORBIC ACID 500 MG TABLET PO SCH (10:14)
[2018-10-12] MEDS: FUROSEMIDE 20 MG TABLET PO SCH (10:18)
[2018-10-12 11:19] LABS: AMORPHOUS SEDIMENT,URINE TRACE /HPF; APPEARANCE,URINE SLIGHTLY-CLOUDY; BILIRUBIN,URINE NEGATIVE (NEGATIVE); COLOR,URINE YELLOW; GLUCOSE, URINE NEGATIVE (NEGATIVE); KETONES,URINE NEGATIVE (NEGATIVE); LEUKOCYTE ESTERASE,URINE NEGATIVE (NEGATIVE); NITRITE,URINE NEGATIVE (NEGATIVE); PROTEIN,URINE NEGATIVE (NEGATIVE); URINE SPECIFIC GRAVITY 1.018
[2018-10-12 11:28] VITALS: BP 124/73
== END 2018-10-12 12:38 | disposition home or self-care (01) ==
LOC: ER 00:06 → EH 07:23 → 2S 09:45
PROVIDERS: ADMIT Obstetrics & Gynecology; ATTEND Obstetrics & Gynecology
DX: O12.05 Gestational edema, complicating the puerperium (principal); O99.215 Obesity complicating the puerperium; E66.01 Morbid (severe) obesity due to excess calories; O90.89 Other complications of the puerperium, not elsewhere classified; R30.0 Dysuria; R06.09 Other forms of dyspnea; R00.0 Tachycardia, unspecified; O90.81 Anemia of the puerperium; D64.9 Anemia, unspecified; R51 Headache; L76.22 Postprocedural hemorrhage of skin and subcutaneous tissue following other procedure; Y83.8 Other surgical procedures as the cause of abnormal reaction of the patient, or of later complication, without mention of misadventure at the time of the procedure; Z98.51 Tubal ligation status; O24.430 Gestational diabetes mellitus in the puerperium, diet controlled; Z98.891 History of uterine scar from previous surgery
CPT/HCPCS: 93005; 99285; 96374; 36415; 87086; 83615; 84550; 85025; 80053; 81001 ×2; 84484; 83880; 71045; 71275; 93010; G0378 ×3; J3490 ×6; J1940

== ENCOUNTER → 2018-11-02 | Outpatient (CLI) | payer MEDICAID | LOC: OD 14:35 | PROVIDERS: ATTEND Nurse Practitioner Acute Care | DX: L02.211 Cutaneous abscess of abdominal wall (principal) | CPT/HCPCS: 87070; 87075; 87077; 87186; 87205 ==